=== PATIENT | female | born 1970 | race African-American/Black ===

== ENCOUNTER 2017-12-11 12:07 | Emergency (ER) | payer OTHER ==
[~2017-12-11 12:07] MED LIST: CYCL-36 PO; PERC5TAB12 PO
[2017-12-11 12:18] VITALS: BP 126/70; PULSE 79; RESP 16; TEMP 98.9; O2SAT 97
[2017-12-11] MEDS ORDERED: antibiotics (12:32)
[2017-12-11] MEDS ORDERED: ATOR20TA15 PO (12:32)
[2017-12-11] MEDS ORDERED: LISI-515 PO (12:32)
[2017-12-11] MEDS ORDERED: HYDR25TA5 PO (12:32)
[2017-12-11] MEDS ORDERED: KETOROLAC TROMETHAMINE 60 MG/2 ML (IM) VIAL IM ONE (13:00)
[2017-12-11] MEDS ORDERED: ORPHENADRINE INJ 60 MG/2 ML AMP IM ONE (13:00)
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
[2017-12-11] MEDS ORDERED: ROBA500T PO (13:22)
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
== END 2017-12-11 14:15 | disposition home or self-care (01) ==
LOC: PHEFT 12:07
DX: M54.5 Low back pain (principal); M62.838 Other muscle spasm; M25.511 Pain in right shoulder; I10 Essential (primary) hypertension
CPT/HCPCS: 72072; 72110; 96372; 99283; J1885; J2360